=== PATIENT | female | born 1990 | race Hispanic/Latino ===

== ENCOUNTER 2018-10-29 13:51 | Emergency (ER) | payer OTHER ==
[2018-10-29 14:25] VITALS: RESP 18
--- NOTE | 2018-10-29 14:40 | C.PDOC ---
History Of Present Illness 28 year old female, whose PMHx includes anxiety, presents to the ED for evaluation of chest heaviness and anxiety. Patient states that she returned from a 13-hour flight four days ago. She was evaluated at an Urgent Care for her symptoms and underwent D-dimer, CXR, and EKG, which were unremarkable. Patent felt fine after her discharge. Her symptoms re-occurred last night and have persisted throughout today, prompting visit. Patient reports she has taken Xanax for anxiety in the past, but does not like the way the medication feels so she does not take it often. She denies fever chills, nausea, vomiting, extremity numbness/weakness. Time Seen by Provider: 10/29/18 14:27 Chief Complaint (Nursing): Shortness Of Breath History Per: Patient History/Exam Limitations: no limitations Onset/Duration Of Symptoms: Days Current Symptoms Are (Timing): Still Present Associated Symptoms: denies: Fever, Chills Past Medical History Reviewed: Historical Data, Nursing Documentation, Vital Signs Vital Signs: Last Vital Signs Temp 98.2 F 10/29/18 14:18 Pulse 92 H 10/29/18 14:18 Resp 18 10/29/18 14:18 BP 132/85 10/29/18 14:18 Pulse Ox 99 10/29/18 14:18 - Medical History PMH: Anxiety Surgical History: No Surg Hx - [facility] Procedures APPLICATION OF SPLINT (11/20/04) Family History: States: Unknown Family Hx - Social History Hx Alcohol Use: No Hx Substance Use: No - Immunization History Hx Tetanus Toxoid Vaccination: No Hx Influenza Vaccination: No Hx Pneumococcal Vaccination: No Review Of Systems Constitutional: Negative for: Fever, Chills Cardiovascular: Positive for: Other (chest heaviness ) Gastrointestinal: Negative for: Nausea Neurological: Negative for: Weakness, Numbness Psych: Positive for: Anxiety Physical Exam - Physical Exam Appears: Non-toxic, No Acute Distress Skin: Normal Color, Warm, Dry Head: Atraumatic, Normacephalic Eye(s): bilateral: Normal Inspection Oral Mucosa: Moist Neck: Supple Chest: Symmetrical, No Deformity, No Tenderness Cardiovascular: Rhythm Regular, No Murmur Respiratory: Normal Breath Sounds, No Rales, No Rhonchi, No Wheezing Extremity: Normal ROM, Capillary Refill (less than 2 seconds ) Neurological/Psych: Oriented x3, Normal Speech, Normal Cognition ED Course And Treatment O2 Sat by Pulse Oximetry: 99 (on RA) Pulse Ox Interpretation: Normal Medical Decision Making Medical Decision Making: CXR, EKG, and D-dimer documents from patient's urgent care visit on 10/27 were reviewed by me. CXR and D-dimer are negative. EKG shows Sinus Tachycardia at rate 102bpm. Xanax PO given. Disposition Counseled Patient/Family Regarding: Diagnosis, Need For Followup - Disposition Referrals: YOUR,PMD [Other] Disposition: HOME/ ROUTINE Disposition Time: 15:30 Condition: IMPROVED Instructions: Anxiety, Adult (DC) Forms: [employer] (Urdu), Work Excuse - Clinical Impression Clinical Impression: Anxiety - Scribe Statement The provider has reviewed the documentation as recorded by the Scribe (Brianna León) Provider Attestation: All medical record entries made by the Scribe were at my direction and personally dictated by me. I have reviewed the chart and agree that the record accurately reflects my personal performance of the history, physical exam, medical decision making, and the department course for this patient. I have also personally directed, reviewed, and agree with the discharge instructions and disposition.
[2018-10-29 15:42] VITALS: BP 131/82; PULSE 80; TEMP 98.3
[2018-10-29 15:44] VITALS: O2SAT 99
--- NOTE | 2018-11-01 14:54 | CARD ---
APPROVED REPORT Date of service: 10/29/2018 EKG Measurement Heart [id number] <Conclusion> Normal sinus rhythm with sinus arrhythmia Normal ECG
== END 2018-10-29 15:43 | disposition home or self-care (01) ==
LOC: C.ER 13:51
DX: F41.9 Anxiety disorder, unspecified (principal)

== ENCOUNTER 2018-11-08 17:42 | Emergency (ER) | payer OTHER ==
[2018-11-08 18:50] VITALS: BMI 53.5
[2018-11-08 18:56] VITALS: BP 137/78; PULSE 83; TEMP 98.1; O2SAT 100
--- NOTE | 2018-11-08 19:57 | C.PDOC ---
History Of Present Illness 28 year old female presents with tingling sensation and warmth to her right upper thigh since last night. Denies leg pain/swelling or calf pain/swelling. Patient has been seen three times at urgent care, [facility], [place] and [place] for SOB after a 13 hour flight in late September. She had negative work ups for DVT/PE, last one was at [place] with CTA on 11/03/18. Patient no longer feels SOB but has intermittent chest pressure but none at this time. Time Seen by Provider: 11/08/18 19:23 Chief Complaint (Nursing): Lower Extremity Problem/Injury History Per: Patient History/Exam Limitations: no limitations Onset/Duration Of Symptoms: Hrs Current Symptoms Are (Timing): Still Present Recent travel outside of the [place]: No Past Medical History Reviewed: Historical Data, Nursing Documentation, Vital Signs Vital Signs: Last Vital Signs Temp 98.1 F 11/08/18 18:51 Pulse 83 11/08/18 18:51 Resp 18 11/08/18 18:51 BP 137/78 11/08/18 18:51 Pulse Ox 100 11/08/18 18:51 - Medical History PMH: Anxiety, Asthma (Only as a child) - [facility] Procedures APPLICATION OF SPLINT (11/20/04) Family History: States: No Known Family Hx - Social History Hx Alcohol Use: Yes Hx Substance Use: No - Immunization History Hx Tetanus Toxoid Vaccination: No Hx Influenza Vaccination: No Hx Pneumococcal Vaccination: No Review Of Systems Cardiovascular: Negative for: Chest Pain, Palpitations Respiratory: Negative for: Cough, Shortness of Breath Musculoskeletal: Positive for: Other (Right upper thigh tingling/warmth) Skin: Negative for: Rash Neurological: Negative for: Weakness, Numbness Physical Exam - Physical Exam Appears: Non-toxic, No Acute Distress, Other (Morbidly obese) Skin: Normal Color, Warm, Dry Head: Atraumatic, Normacephalic Eye(s): bilateral: Normal Inspection Oral Mucosa: Moist Extremity: No Calf Tenderness, No Other (No lower extremity tenderness, swel ling, or erythema) Pulses: Left Dorsalis Pedis: Normal, Right Dorsalis Pedis: Normal Neurological/Psych: Oriented x3, Normal Speech, Normal Motor, Normal Sensation Gait: Steady ED Course And Treatment O2 Sat by Pulse Oximetry: 100 (Room air) Pulse Ox Interpretation: Normal Progress Note: Patient is resting comfortably in no acute distress, vitals are stable, will discharge home with instructions to follow up with PMD and return precautions given. Disposition Counseled Patient/Family Regarding: Diagnosis, Need For Followup, Rx Given - Disposition Referrals: PMD, Private office [Other] Disposition: HOME/ ROUTINE Disposition Time: 19:55 Condition: STABLE Additional Instructions: Please follow up with PMD in 1-2 days Take Tylenol or advil for pain Return to ER if symptoms are worsening or if calf pain, leg swelling, difficulty breathing or worse Instructions: Paresthesias (DC) Forms: [employer] (Spanish) - Clinical Impression Clinical Impression: Paresthesia of right lower extremity, Anxiety - PA / PHOTOGRAPHY MANAGER / Resident Statement MD/DO has reviewed & agrees with the documentation as recorded. - Scribe Statement The provider has reviewed the documentation as recorded by the Scribcampos Barney All medical record entries made by the Scrib[employer] were at my direction and personally dictated by me. I have reviewed the chart and agree that the record accurately reflects my personal performance of the history, physical exam, medical decision making, and the department course for this patient. I have also personally directed, reviewed, and agree with the discharge instructions and disposition.
[2018-11-08 20:16] VITALS: RESP 20
== END 2018-11-08 20:15 | disposition home or self-care (01) ==
LOC: C.ER 17:42
DX: R20.2 Paresthesia of skin (principal); F41.9 Anxiety disorder, unspecified